=== PATIENT | female | born 1975 | race Caucasian/White ===

== ENCOUNTER → 2018-11-08 | Outpatient (CLI) | payer MEDICAID ==
--- NOTE | 2018-11-14 13:56 | MM ---
Reason for exam: screening (asymptomatic). Last mammogram was performed 5 years and 8 months ago. History: Patient is nulliparous. Family history of breast cancer in paternal grandmother, breast cancer in maternal grandmother, breast cancer in paternal aunt, and breast cancer in paternal cousin. Physical Findings: A clinical breast exam by your physician is recommended on an annual basis and results should be correlated with mammographic findings. MG 3D Screening Mammo W/Cad Bilateral CC, MLO, and XCCL view(s) were taken. Prior study comparison: March 05, 2013, mammogram, performed at [facility]. February 25, 2012, mammogram, performed at [place]. Benign appearing calcifications in the left breast. No suspicious abnormality on the right breast. Left retroareolar distortion. ASSESSMENT: Incomplete: need additional imaging evaluation, BI-RAD 0 RECOMMENDATION: Special view mammogram of the left breast. If lesion persists on supplemental views, image directed ultrasound is recommended. [facility] will attempt to contact patient to return for supplemental views and ultrasound if indicated.
== END | disposition home or self-care (01) ==
LOC: RADMAMWWP 15:00
PROVIDERS: ATTEND Family Medicine
DX: Z12.31 Encounter for screening mammogram for malignant neoplasm of breast (principal); Z80.3 Family history of malignant neoplasm of breast
CPT/HCPCS: 77063; 77067

== ENCOUNTER → 2018-11-27 | Outpatient (CLI) | payer MEDICAID ==
--- NOTE | 2018-11-28 08:10 | MM ---
Reason for exam: additional evaluation requested from abnormal screening. Last mammogram was performed 1 month ago. History: Patient is nulliparous. Family history of breast cancer in paternal grandmother, breast cancer in maternal grandmother, breast cancer in paternal aunt, and breast cancer in paternal cousin. Physical Findings: Nurse did not find any significant physical abnormalities on exam. MG 3D Work Up W/Cad LT Spot compression CC, spot compression MLO, and ML view(s) were taken of the left breast. Prior study comparison: November 08, 2018, bilateral MG 3d screening mammo w/cad. March 05, 2013, mammogram, performed at . The previously seen abnormality resolves on additional views and appears as fibroglandular tissue compatible with summation. No suspicious abnormality. These results were verbally communicated with the patient and result sheet given to the patient on 11/27/18. ASSESSMENT: Benign, BI-RAD 2 RECOMMENDATION: Return to routine screening mammogram schedule for both breasts.
== END | disposition home or self-care (01) ==
LOC: RADMAMWWP 13:30
PROVIDERS: ATTEND Family Medicine
DX: R92.8 Other abnormal and inconclusive findings on diagnostic imaging of breast (principal)
CPT/HCPCS: 77061; 77065

== ENCOUNTER → 2023-04-20 | Outpatient (CLI) | payer MEDICAID ==
[2023-04-20 11:00] LABS: Basophils # (A) 0.06 X 10*3/uL (0.00-0.10); Basophils % (A) 0.8 %; Eosinophils # (A) 0.17 X 10*3/uL (0.04-0.35); Eosinophils % (A) 2.4 %; HCT 38.7 % (37.2-46.3); HGB 12.7 g/dL (12.0-15.0); Lymphocytes # (A) 1.96 X 10*3/uL (0.90-5.00); Lymphocytes % (A) 27.5 %; MCH 27.6 pg (27.0-32.0); MCHC 32.8 g/dL (32.0-37.0); MCV 84.1 FL (80.0-97.0); Mean Platelet Volume 10.9 FL (9.5-12.2); Monocytes # (A) 0.44 X 10*3/uL (0.20-1.00); Monocytes % (A) 6.2 %; NRBC Per 100 WBC 0 X 10*3/uL (0.00-0.01); Neutrophils # (A) 4.46 X 10*3/uL (1.80-7.70); Neutrophils % (A) 62.7 %; Platelet Count 234 X 10*3/uL (140-440); RDW 13.2 % (11.5-14.5); WBC 7.12 X 10*3/uL (4.50-10.00)
[2023-04-20 11:10] LABS: Chol/HDL Ratio 3.31 Ratio; VLDL Calculation 13.86 mg/dL (5.00-40.00)
== END | disposition home or self-care (01) ==
LOC: LABWHC1 07:07
PROVIDERS: ATTEND Nurse Practitioner Family
DX: Z00.00 Encounter for general adult medical examination without abnormal findings (principal); E66.9 Obesity, unspecified
CPT/HCPCS: 36415; 80061; 84590; 85025

== ENCOUNTER → 2023-05-04 | Outpatient (CLI) | payer MEDICAID ==
--- NOTE | 2023-05-06 07:06 | MR ---
EXAMINATION TYPE: MR knee RT wo con DATE OF EXAM: 05/04/2023 COMPARISON: NONE HISTORY: Rt knee outer pain with locking and swelling for 6 months TECHNIQUE: Multiplanar, multisequence images of the knee is performed without IV contrast. FINDINGS: MEDIAL MENISCUS: Horizontal oblique signal posterior horn does not definitively extend to articular s urface. LATERAL MENISCUS: Anterior and posterior horns are intact without tear. CRUCIATE LIGAMENTS: The anterior and posterior cruciate ligaments are intact and unremarkable. COLLATERAL LIGAMENTS: The medial collateral ligament and lateral collateral ligament complex are inta ct. Mild fluid signal surrounding the medial collateral ligament. Tiny cystic change near the proxima l origin of the medial collateral ligament coronal image 18 for reference. EXTENSOR MECHANISM: Visualized quadriceps and patellar tendons are intact. EFFUSION: Moderate to large sized suprapatellar joint effusion. POPLITEAL CYST: No popliteal/garcia cyst. TRICOMPARTMENT SPACES: Mild tricompartment joint space loss with mild to minimal spurring. CARTILAGE: Right femoral articular cartilage is preserved. BONE MARROW SIGNAL: Heterogeneity consistent with red marrow reconversion. No suspicious increased T2 signal or edema. OTHER: No additional significant abnormality is appreciated. IMPRESSION: 1. Moderate to large-size suprapatellar joint effusion. 2. Moderate MCL sprain injury. 3. At least intrasubstance tear posterior horn medial meniscus, no definitive full-thickness meniscal tear.
== END | disposition home or self-care (01) ==
LOC: RADMRIMAIN 07:12
PROVIDERS: ATTEND Orthopaedic Surgery
DX: M25.461 Effusion, right knee (principal); M23.321 Other meniscus derangements, posterior horn of medial meniscus, right knee; M23.631 Other spontaneous disruption of medial collateral ligament of right knee

== ENCOUNTER → 2023-05-10 | Outpatient (CLI) | payer MEDICAID ==
--- NOTE | 2023-05-11 20:00 | MM ---
Reason for Exam: Screening (asymptomatic). Last mammogram was performed 4 year(s) and 6 month(s) ago. Patient History: Menarche at age 13. Patient has no children. Paternal grandmother had breast cancer. Maternal grandmother had breast cancer. Paternal cousin had breast cancer. Paternal aunt had breast cancer. Sister had breast cancer, age 53. Last menstrual period: 05/09/2023 Risk Values: Naila 5 year model risk: 1.7%. NCI Lifetime model risk: 17.5%. Prior Study Comparison: 03/05/2013 Screening Mammogram, [facility]. 11/08/2018 Bilateral Screening Mammogram, [facility]. 11/27/2018 Left Diagnostic Mammogram, [facility]. Tissue Density: There are scattered fibroglandular densities. Findings: Analyzed By CAD. There is no suspicious group of microcalcifications or new suspicious mass in either breast. Overall Assessment: Negative, BI-RAD 1 Management: Screening Mammogram of both breasts in 1 year. . Patient should continue monthly self-breast exams. A clinical breast exam by your physician is recommended on an annual basis. This exam should not preclude additional follow-up of suspicious palpable abnormalities. Note on Naila scores and lifetime risk: 1. A Naila score greater than 3% is considered moderate risk. If this is the case, consider specialist referral to assess eligibility for a risk reducing agent. 2. If overall lifetime risk for the development of breast cancer is 20% or higher, the patient may qualify for future screening with alternating mammogram and breast MRI. Electronically signed and approved by: Nikia Coughlin M.D. Radiologist
== END | disposition home or self-care (01) ==
LOC: RADMAMWWP 15:59
PROVIDERS: ATTEND Family Medicine
DX: Z12.31 Encounter for screening mammogram for malignant neoplasm of breast (principal); Z80.3 Family history of malignant neoplasm of breast
CPT/HCPCS: 77063; 77067

== ENCOUNTER 2023-05-24 12:01 | Day surgery (SDC) | payer MEDICAID ==
[2023-05-17 16:18] VITALS: BMI 45.8
[~2023-05-24 12:01] MED LIST: DEXAMETHASONE SOD PHOSPHATE 4 MG/ML 1 ML VIAL IV ONE; HYDROmorphone 0.5 MG/0.5 ML SYRINGE IVP PRN; LACTATED RINGERS 1,000 ML IV SCH; LIDOCAINE 1% (10MG/ML) FOR IV START INTRADERMA PRN; MIDAZOLAM 2 MG/2 ML VIAL IV PRN; ONDANSETRON 4 MG/2 ML VIAL IVP ONE; Pre Op ABX Message 1 EACH MISC MISCELLANE ONE
[2023-05-24] MEDS ORDERED: MIDAZOLAM 2 MG/2 ML VIAL ONE (13:05)
[2023-05-24] MEDS ORDERED: PROPOFOL 10 MG/ML 20 ML VIAL IV ONE (13:05)
[2023-05-24] MEDS ORDERED: KETOROLAC 15 MG/ML 1 ML VIAL ONE (13:05)
[2023-05-24] MEDS ORDERED: HYDROmorphone (PF) 1 MG/ML ONE (13:05)
[2023-05-24] MEDS ORDERED: fentaNYL (PF) 50 MCG/ML 2 ML AMP ONE (13:05)
[2023-05-24] MEDS ORDERED: SUCCINYLCHOLINE CHLORIDE 200 MG/10 ML VIAL IV ONE (13:05)
[2023-05-24] MEDS ORDERED: SODIUM CHLORIDE 0.9% 100 ML with ceFAZolin 2,000 MG IV ONE ×2 (13:10)
[2023-05-24] MEDS ORDERED: BUPIVACAINE (PF) 0.5% 30 ML VIAL INTRAARTIC ONE ×2 (13:31→13:42)
--- NOTE | 2023-05-24 13:47 | P.OP ---
Date of Procedure: 05/24/23 Preoperative Diagnosis: Torn medial meniscus right knee Postoperative Diagnosis: 1. Torn medial meniscus right knee 2. Loose bodies 3. 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 Synovitis Procedure(s) Performed: 1. Arthroscopy of the right knee with partial medial meniscectomy (5% of the meniscus excised) 2. Arthroscopic removal of loose bodies 3. Chondroplasty medial femoral condyle 4. Partial synovectomy of the medial femoral, lateral femoral, patellofemoral compartments Anesthesia: GETA Surgeon: Marty Carlos Estimated Blood Loss (ml): 5 Pathology: none sent Condition: stable Disposition: PACU Indications for Procedure: This is a 47-year-old female who presented my office with pain in her right knee. MRI demonstrated torn medial meniscus and after discussing the nonsurgical treatment options with her at length, I recommended an arthroscopy with partial medial meniscectomy. She is agreeable to this informed consent was obtained. Operative Findings: The operative findings are consistent with a torn medial meniscus, loose bodies, grade 2 chondral malacia medial femoral condyle, and synovitis Description of Procedure: Patient was seen and evaluated in the preoperative area, the operative site was marked with a skin marker. The patient was then brought to the operating room and given 2 g of Ancef intravenously. A general anesthetic was administered by the anesthesia department. Tourniquet was placed on the right upper thigh and the left lower extremity was then prepped and draped in usual sterile fashion. A universal timeout was then performed confirming the patient's name, surgical site, ALLERGIES, and consent. The limb was then exsanguinated and tourniquet insufflated to 250 mmHg. Standard inferior medial and inferior lateral portals were established in the knee. The trochar was inserted in the inferolateral portal. Examination began at the patellofemoral joint. It was no chondral malacia of the patellofemoral compartment, but there was a large amount of loose bodies and a moderate amount of synovitis. Next the medial compartment was visualized. There was a tear of the posterior horn of the medial meniscus. There was grade 2 chondral malacia the mediofemoral compartment and synovitis, well as a large amount of loose bodies. The notch area was then visualized and the ACL was intact. The Lateral compartment was then visualized and the lateral horn of the lateral meniscus was intact. There was no evidence of chondromalacia, but a mild amount of synovitis and loose bodies. Next, using an arthroscopic shaver and a biter, a partial medial meniscectomy was performed stable margins. Approximately 5% of the meniscus was excised. Using the shaver, the loose bodies were removed arthroscopically. There was a significant amount of loose bodies throughout all 3 compartments of the knee. A partial synovectomy is performed the medial femoral, lateral femoral, patellofemoral compartments. Chondroplasty was also performed of the medial femoral compartment of the knee. Knee was then copiously irrigated, instruments removed, incisions were closed with 4-0 nylon. 30 mL of half percent plain Marcaine was injected sterilely into the surgical area. A sterile dressing was then applied, and the tourniquet was released. Patient was then transferred to recovery room in stable condition.condition.
[2023-05-24 14:05] VITALS: TEMP 97
[2023-05-24] MEDS ORDERED: ONDANSETRON 4 MG/2 ML VIAL IVP ONE (14:13)
[2023-05-24] MEDS ORDERED: droPERidol 5 MG/2 ML VIAL IVP ONE (14:29)
[2023-05-24 16:28] VITALS: BP 144/76; PULSE 74; RESP 18
== END 2023-05-24 16:31 | disposition home or self-care (01) ==
LOC: OR 12:01
PROVIDERS: ATTEND Orthopaedic Surgery
DX: S83.241A Other tear of medial meniscus, current injury, right knee, initial encounter (principal); M23.41 Loose body in knee, right knee; M65.9 Synovitis and tenosynovitis, unspecified; M94.261 Chondromalacia, right knee; F32.A Depression, unspecified; F41.9 Anxiety disorder, unspecified; F10.90 Alcohol use, unspecified, uncomplicated; J98.4 Other disorders of lung; J45.909 Unspecified asthma, uncomplicated; E66.9 Obesity, unspecified; Z90.49 Acquired absence of other specified parts of digestive tract; Z98.890 Other specified postprocedural states; Z91.010 Allergy to peanuts; Z91.013 Allergy to seafood; Z79.51 Long term (current) use of inhaled steroids; Z79.899 Other long term (current) drug therapy; Z68.41 Body mass index [BMI] 40.0-44.9, adult
CPT/HCPCS: 29881; 29876; 81025; J2250; J0330; J1100; J2405; J0690; J3010; J1170; J1885; J2704; J1790; J0665

== ENCOUNTER → 2024-02-17 | Outpatient (CLI) | payer MEDICAID ==
[2024-02-17 15:11] LABS: Basophils # (A) 0.05 X 10*3/uL (0.00-0.10); Basophils % (A) 0.6 %; Eosinophils # (A) 0.12 X 10*3/uL (0.04-0.35); Eosinophils % (A) 1.5 %; HCT 41.9 % (37.2-46.3); HGB 13.9 g/dL (12.0-15.0); Lymphocytes # (A) 1.38 X 10*3/uL (0.90-5.00); Lymphocytes % (A) 17.4 %; MCH 27.8 pg (27.0-32.0); MCHC 33.2 g/dL (32.0-37.0); MCV 83.8 FL (80.0-97.0); Mean Platelet Volume 11.2 FL (9.5-12.2); Monocytes # (A) 0.75 X 10*3/uL (0.20-1.00); Monocytes % (A) 9.5 %; NRBC Per 100 WBC 0 X 10*3/uL (0.00-0.01); Neutrophils % (A) 70.7 %; Platelet Count 225 X 10*3/uL (140-440); RDW 13.1 % (11.5-14.5); WBC 7.92 X 10*3/uL (4.50-10.00)
[2024-02-17 15:24] LABS: ALT 19 U/L (8-44); AST 20 U/L (13-35); Albumin 4.1 g/dL (3.8-4.9); Albumin/Globulin Ratio 1.21 Ratio (1.60-3.17); Alkaline Phosphatase 89 U/L (41-126); BUN/Creat Ratio 10.29 Ratio (12.00-20.00); Blood Urea Nitrogen 7.2 mg/dL (9.0-27.0); Calcium 9.8 mg/dL (8.7-10.3); Carbon Dioxide 22.7 mmol/L (21.6-31.8); Chloride 101 mmol/L (96-109); Globulin 3.4 g/dL (1.6-3.3); Glucose 133 mg/dL (70-110); Potassium 3.2 mmol/L (3.5-5.5); Sodium 137 mmol/L (135-145); Total Bilirubin 0.5 mg/dL (0.3-1.2); Total Protein 7.5 g/dL (6.2-8.2)
== END | disposition home or self-care (01) ==
LOC: LABWHC1 07:11
PROVIDERS: ATTEND Family Medicine
DX: K52.9 Noninfective gastroenteritis and colitis, unspecified (principal)
CPT/HCPCS: 36415; 80053; 83516; 85025

== ENCOUNTER 2024-03-16 08:00 | Day surgery (SDC) | payer MEDICAID ==
[2024-03-15 09:54] VITALS: BMI 44.7
[2024-03-16 08:30] VITALS: TEMP 98.2
[2024-03-16] MEDS: LACTATED RINGERS 1,000 ML IV SCH (08:35)
[2024-03-16] MEDS: IV FLUID CONTINUATION 1,000 ML IV ONE (08:35)
[2024-03-16] MEDS ORDERED: PROPOFOL 10 MG/ML 20 ML VIAL IV ONE (08:38)
[2024-03-16] MEDS ORDERED: LIDOCAINE 1% INJ 10MG/ML (20 ML MDV) ONE (08:38)
--- NOTE | 2024-03-16 09:02 | P.PCN ---
Date of Procedure: 03/16/24 Procedure(s) Performed: Brief history: Patient is a pleasant 48-year-old pleasant white female scheduled for an elective upper endoscopy as well as colonoscopy as a part of evaluation of abdominal pain, GERD and chronic intermittent diarrhea for the last few months duration Procedure performed: Esophagogastroduodenoscopy with biopsy Colonoscopy biopsy and snare polypectomy 20 Preoperative diagnosis: GERD Lower quadrant abdominal pain and diarrhea Anesthesia: MAC Procedure: After informed consent was obtained from the patient was brought into the endoscopy unit and IV sedation was administered by anesthesia under continuous monitoring. Initially upper endoscopy was done. The Olympus GF 160 video endoscope was inserted inserted into the mouth and esophagus intubated without any difficulty and was gradually advanced into the stomach and duodenum and carefully examined. The bulb and second part of the duodenum appeared normal. The scope was then withdrawn into the stomach adequately insufflated with air and upon careful examination the antrum and mild gastritis and biopsies were done from this area. Mucosa of the body, cardia and fundus appeared normal. The scope was then withdrawn into the esophagus. Small sliding-type hiatal hernia noted. The GE junction was located at 40 cm to the incisors. It appeared regular with 2 superficial erosions consistent with LA grade B reflux esophagitis.. Rest of the esophagus appeared normal. Patient tolerated the procedure well. At this time the patient continued to remain sedation. Initial digital rectal examination was normal. Olympus CF 160 video colonoscope was then inserted into the rectum and gradually advanced to the cecum without any difficulty. Careful examination was performed as the scope was gradually being withdrawn. The prep was excellent. The cecum, ascending colon, transverse colon, descending colon, appeared normal. Random biopsies were done from the ascending and descending colon to rule out microscopic/collagenous colitis. In the sigmoid colon there was a 5 mm sessile polyp removed by cold snare polypectomy. Rest of the sigmoid colon and rectum appeared normal. Retroflexion was performed in the rectum and no lesions were noted. Patient tolerated the procedure well. Impression: 1. Upper endoscopy revealed small hiatal hernia, LA grade B reflux esophagitis and mild antral gastritis 2. Colonoscopy revealed 5 mm proximal sigmoid colon polyp status post cold snare polypectomy and the rest of the colon appeared normal Recommendations: Findings of this examination were discussed with the patient as well as her family. She was advised to follow-up with the biopsy results and the biopsy is adenoma she can have repeat colonoscopy in 5 years. The meantime she will continue with omeprazole 20 mg daily and follow antireflux measures. Follow-up in the office in 2 weeks.
[2024-03-16 09:29] VITALS: BP 112/77; PULSE 75; RESP 16
== END 2024-03-16 09:48 | disposition home or self-care (01) ==
LOC: ORWHC2ENDO 08:00
PROVIDERS: ATTEND Internal Medicine Gastroenterology
DX: K29.50 Unspecified chronic gastritis without bleeding (principal); K21.00 Gastro-esophageal reflux disease with esophagitis, without bleeding; K44.9 Diaphragmatic hernia without obstruction or gangrene; K29.80 Duodenitis without bleeding; D12.5 Benign neoplasm of sigmoid colon
CPT/HCPCS: 81025; 88305; 88342; 45380; 45385; 43239; J2003; J2704

== ENCOUNTER → 2024-07-05 | Outpatient (CLI) | payer MEDICAID ==
[2024-07-06 02:34] LABS: HCT 45.9 % (37.2-46.3); HGB 14.6 g/dL (12.0-15.0); MCH 27.4 pg (27.0-32.0); MCHC 31.8 g/dL (32.0-37.0); MCV 86.1 FL (80.0-97.0); Mean Platelet Volume 11.8 FL (9.5-12.2); NRBC Per 100 WBC 0 X 10*3/uL (0.00-0.01); Platelet Count 274 X 10*3/uL (140-440); RBC 5.33 X 10*6/uL (4.10-5.20); RDW 13.8 % (11.5-14.5); WBC 17.41 X 10*3/uL (4.50-10.00)
[2024-07-06 02:45] LABS: ALT 22 U/L (8-44); AST 19 U/L (13-35); Albumin 4.5 g/dL (3.8-4.9); Albumin/Globulin Ratio 1.29 Ratio (1.60-3.17); Alkaline Phosphatase 96 U/L (41-126); BUN/Creat Ratio 18.17 Ratio (12.00-20.00); Blood Urea Nitrogen 10.9 mg/dL (9.0-27.0); Calcium 10.3 mg/dL (8.7-10.3); Carbon Dioxide 22.3 mmol/L (21.6-31.8); Chloride 106 mmol/L (96-109); Globulin 3.5 g/dL (1.6-3.3); Glucose 95 mg/dL (70-110); Potassium 3.6 mmol/L (3.5-5.5); Sodium 140 mmol/L (135-145); Total Bilirubin 0.3 mg/dL (0.3-1.2)
[2024-07-06 04:06] LABS: NT-Pro-B-Type Natriuretic Pept 57 pg/mL (0-125)
== END | disposition home or self-care (01) ==
LOC: LABWHC1 15:16
PROVIDERS: ATTEND Family Medicine
DX: R60.9 Edema, unspecified (principal)
CPT/HCPCS: 36415; 80053; 83880; 85027